=== PATIENT | female | born 1955 | race Caucasian/White ===

== ENCOUNTER 2023-03-14 11:02 | Outpatient (CLI) | payer MEDICARE, OTHER ==
[2023-03-14 12:42] LABS: BASOPHILS # (AUTO) 0.1 K/uL (0.0-0.2); BASOPHILS % (AUTO) 0.8 % (0.0-2.0); EOSINOPHILS % (AUTO) 3.1 % (0.0-6.0); HEMATOCRIT 36 % (33-45); HEMOGLOBIN 11.9 g/dL (11.5-14.8); LYMPHOCYTES # (AUTO) 2.8 K/uL (0.8-4.8); LYMPHOCYTES % (AUTO) 39.7 % (20.0-44.0); MEAN CORPUSCULAR HGB CONC 34 g/dl (31.0-36.0); MEAN CORPUSCULAR VOLUME 89 fL (82-100); MONOCYTES # (AUTO) 0.5 K/uL (0.1-1.30); MONOCYTES % (AUTO) 7.1 % (2.0-12.0); NEUTROPHILS # (AUTO) 3.5 K/uL (1.8-8.9); NEUTROPHILS % (AUTO) 49.3 % (43.0-81.0); PLATELET COUNT (AUTO) 300 K/uL (150-450); RED BLOOD CELL COUNT(AUTO) 3.99 MIL/uL (4.0-5.2); WHITE BLOOD COUNT (AUTO) 7.1 K/uL (4.3-11.0)
[2023-03-14 12:43] LABS: BILIRUBIN,URINE NEGATIVE (NEGATIVE); COLOR,URINE YELLOW (YELLOW); LEUKOCYTE ESTERASE ,URINE 2+ (NEGATIVE); NITRITE, URINE POSITIVE (NEGATIVE); PROTEIN,URINE NEGATIVE (NEGATIVE); UGLUCOSE NEGATIVE (NEGATIVE); UROBILINOGEN,URINE 0.2 EU/dL (0.2)
[2023-03-14 13:01] LABS: BACTERIA,URINE Many /HPF (None Seen); SQUAMOUS EPITHELIAL CELL,UR Moderate /HPF (None Seen); WBC,URINE 51-80 /HPF (0-3)
[2023-03-14 13:02] LABS: MUCUS,URINE Moderate /LPF (None Seen)
[2023-03-14 13:13] LABS: CALCIUM, SERUM 9.4 mg/dL (8.5-10.1); CREATININE 1.5 mg/dL (0.6-1.3); POTASSIUM 4.9 mmol/L (3.5-5.1)
== END 2023-03-14 23:59 | disposition home or self-care (01) ==
LOC: LAB 11:02
PROVIDERS: ATTEND Internal Medicine Pulmonary Disease
DX: Z01.818 Encounter for other preprocedural examination (principal)
CPT/HCPCS: 36415; 71045-TC; 80048-TC; 81001; 85025-TC; 85610-TC; 85730-TC; 87086-TC

== ENCOUNTER 2023-03-17 14:00 | Outpatient (CLI) | payer MEDICARE, OTHER | END 2023-03-17 23:59 | disposition home or self-care (01) | LOC: LAB 14:00 | PROVIDERS: ATTEND Dentist Oral and Maxillofacial Surgery | DX: Z01.812 Encounter for preprocedural laboratory examination (principal); Z20.822 Contact with and (suspected) exposure to COVID-19 | CPT/HCPCS: U0003; C9803 ==

== ENCOUNTER 2023-03-24 08:36 | Inpatient (IN) | payer MEDICARE, OTHER ==
[~2023-03-24] VITALS: Ht 172.7 cm; Wt 102.1 kg
[2023-03-24 09:30] VITALS: BP 135/75
[2023-03-24] MEDS ORDERED: ACETAMINOPHEN ES 500 MG TABLET PO ONE (09:30)
[2023-03-24] MEDS ORDERED: GABAPENTIN 300 MG CAPSULE PO ONE (09:30)
[2023-03-24] MEDS ORDERED: VANCOMYCIN 1 GM VIAL ONE (09:46)
[2023-03-24] MEDS ORDERED: DEXAMETHASONE SOD PHOSPHATE 10 MG/ML VIAL ONE (09:46)
[2023-03-24] MEDS ORDERED: LIDOCAINE 2%-EPI 1:100,000 30 ML VIAL ONE (09:46)
[2023-03-24] MEDS ORDERED: FENTANYL PF 100MCG/2ML AMPUL ONE (11:16)
[2023-03-24] MEDS ORDERED: FAMOTIDINE/PF INJ 20 MG/2 ML VIAL IV ONE (11:16)
[2023-03-24] MEDS ORDERED: ROCURONIUM BROMIDE 50 MG/5 ML ONE (11:16)
[2023-03-24] MEDS ORDERED: IV NS 0.9% 1,000 ML IV PRN (14:00)
[2023-03-24] MEDS ORDERED: ACETAMINOPHEN 325 MG TABLET PO PRN (14:00)
--- NOTE | 2023-03-24 14:10 | NUR ---
Received patient stable from day surgery. Patient admitted to Tele as per MD's order. Vitals taken as follows: BP-123/59, HR-83, Temp-97.7, RR-17, SPO2-96%. Skin intact except for rashes on lower right breast, photo taken. Initial orders from Dr. Varela put in, Hospitalist Jeremy garza. Charge nurse aware. Will continue to monitor the patient.
[2023-03-24] MEDS ORDERED: METH1TAB69 PO (15:05)
[2023-03-24] MEDS ORDERED: MULT-447 PO (15:05)
[2023-03-24] MEDS ORDERED: ALLO100T PO (15:05)
[2023-03-24] MEDS ORDERED: ICOS1CAP PO (15:05)
[2023-03-24] MEDS ORDERED: ROSU20TA32 PO (15:05)
[2023-03-24] MEDS ORDERED: DICL100G34 TD (15:05)
[2023-03-24] MEDS ORDERED: BISO5TAB20 PO (15:05)
[2023-03-24] MEDS ORDERED: CHOL200010 PO (15:05)
[2023-03-24] MEDS ORDERED: ASPI-1420 PO (15:05)
[2023-03-24] MEDS ORDERED: AMOX1TAB16 PO (15:14)
[2023-03-24 16:00] VITALS: BP 131/72
[2023-03-24] MEDS ORDERED: ALLOPURINOL 100 MG TABLET PO PRN (17:30)
--- NOTE | 2023-03-24 18:50 | NUR ---
Patient resting in bed, ambulatory with BRP, tolerated soft diet well, A/Ox4. Patient's daughter at bedside before and after the day surgery. Patient has IV access at Lt hand #22, C/D/I. Seen by hospitalist later this pm, Dr. Jeremy Prasad who mentioned, patient for DC planning by tomorrow. Safety protocol in placed. will be endorsed to pm shift nurse for JENNIFER
--- NOTE | 2023-03-24 20:20 | NUR ---
SALES ATTENDANT BUILDING MATERIALS OPENING NOTES RECEIVED PATIENT IN BED, AWAKE AND COHERENT. ON MODERATE HIGH BACK REST POSITION. ON ROOM AIR SATURATING WELL. NO COMPLAIN OF PAIN OR DISCOMFORT AT THIS TIME. NO CHEST PAIN OR DISTRESS NOTED. ON DVT MACHINE TOLERATING WELL. PAIN MANAGEMENT PAIN MAINTAINED.KEPT SIDE RAILS UP X 2 ALL THE TIME, KEPT BED ON LOWER LOCKED POSITION. ASSIST PATIENT DURING AMBULATION. ATTACHED TO TELE MONITORING DEVICE. WILL CONTINUE TO MONITOR.
[2023-03-24] MEDS ORDERED: ATORVASTATIN 40 MG TABLET PO SCH (22:00)
--- NOTE | 2023-03-25 05:30 | NUR ---
RN NOTES MRSA SWAB DONE AND SENT TO LABORATORY.
--- NOTE | 2023-03-25 06:39 | NUR ---
RN MS CLOSING NOTES PATIENT IS IN BED, ASLEEP ON MODERATE HIGH BACK REST POSITION. ON ROOM AIR SATURATING WELL. WITH IV ACCESS AT LEFT HAND #22G PATENT AND INTACT. NO PAIN OR DISCOMFORT AT THIS TIME, CONTINENT AND ABLE TO GO TO THE BATHROOM WITH MINIMAL ASSISTANCE,AMBULATE WITH ASSISTANCE, PAIN MANAGEMENT MAINTAINED. ALL DUE MEDICATIONS GIVEN, ALL NEEDS ATTENDED. KEPT BED ON LOWER LOCKED POSITION, KEPT SIDE RAILS UP X2 ALL THE TIME, KEPT CALL LIGHT WITHIN AT REACH. SAFETY MEASURES MAINTAINED,KEPT PATIENT WARM AND COMFORTABLE, WILL ENDORSED TO HEADWAITRESS FOR JENNIFER.
--- NOTE | 2023-03-25 07:20 | NUR ---
RN OPENING NOTES RECEIVED PATIENT IN BED, AWAKE AND COHERENT. ON ROOM AIR SATURATING WELL. NO COMPLAIN OF PAIN OR DISCOMFORT AT THIS TIME. IV ACCESS RIGHT HAND #22 SL , NO SOB OR DISTRESS NOTED. .KEPT SIDE RAILS UP X 2 ALL THE TIME, KEPT BED ON LOWER LOCKED POSITION. ASSIST PATIENT DURING AMBULATION. WILL CONTINUE TO MONITOR.
[2023-03-25 08:41] VITALS: BP 120/52
[2023-03-25] MEDS ORDERED: AMOX/CLAVULANATE 875 MG TABLET PO SCH (09:00)
[2023-03-25] MEDS ORDERED: BISOPROLOL FUMARATE 5 MG TABLET PO SCH (09:00)
[2023-03-25] MEDS ORDERED: ASPIRIN EC 81 MG TABLET.DR PO SCH (09:00)
--- NOTE | 2023-03-25 14:50 | NUR ---
DRIER TRANSFER CAR OPERATOR NOTES PATIENT WAS SEEN BY DR MANDEL AND WITH ORDER FOR DISCHARGE TO HOME , STABLE AND MEDICALLY CLEARED BY MD , ALL DISCHARGE PAPERS WERE PREPARED AND DISCHARGE INSTRUCTIONS PROVIDED TO THE PATIENT , ABLE TO UNDERSTAND INSTRUCTIONS PROVIDED REGARDING MEDICATIONS , FOLLOW UP WITH DR MCCARTHY AND CALL 911 IN CASE OF EMERGENCY , IV ACCESS AND ID BAND WAS REMOVED , ALL BELONGINGS WERE TAKEN AND FORM WAS SIGN FOR THE BELONGING LIST , DAUGHTER WILL PROVIDE TRANSPORTATION AND PATIENT WAS ACCOMPANIED BY MANAGER DRILLING TO THE LOBBY , LEFT WITH NO SOB , NO C/O OF PAIN AND DISCOMFORT , IN A STABLE CONDITION
== END 2023-03-25 14:45 | disposition home or self-care (01) | DRG 141 ==
LOC: DS 08:36 → MED 08:38
PROVIDERS: ADMIT Dentist Oral and Maxillofacial Surgery
PROC: 0NBR0ZX Excision of Maxilla, Open Approach, Diagnostic (ICD-10-PCS; principal; 2023-03-24)
PROC: 0NSR04Z Reposition Maxilla with Internal Fixation Device, Open Approach (ICD-10-PCS; 2023-03-24)
PROC: 0NUR0KZ Supplement Maxilla with Nonautologous Tissue Substitute, Open Approach (ICD-10-PCS; 2023-03-24)
PROC: 0NST04Z Reposition Right Mandible with Internal Fixation Device, Open Approach (ICD-10-PCS; 2023-03-24)
PROC: 0NC Head and Facial Bones, Extirpation (ICD-10-PCS; 2023-03-24)
PROC: 0NBV0ZX Excision of Left Mandible, Open Approach, Diagnostic (ICD-10-PCS; 2023-03-24)
DX: M27.2 Inflammatory conditions of jaws (principal); S02.40CK Maxillary fracture, right side, subsequent encounter for fracture with nonunion; S02.40DK Maxillary fracture, left side, subsequent encounter for fracture with nonunion; T86.831 Bone graft failure; S02.609K Fracture of mandible, unspecified, subsequent encounter for fracture with nonunion; J32.0 Chronic maxillary sinusitis; I25.10 Atherosclerotic heart disease of native coronary artery without angina pectoris; Z95.1 Presence of aortocoronary bypass graft; E78.5 Hyperlipidemia, unspecified; M10.9 Gout, unspecified; E66.9 Obesity, unspecified; Z68.34 Body mass index [BMI] 34.0-34.9, adult; I10 Essential (primary) hypertension; X58.XXXD Exposure to other specified factors, subsequent encounter; I25.2 Old myocardial infarction; K08.409 Partial loss of teeth, unspecified cause, unspecified class; Z96.643 Presence of artificial hip joint, bilateral; M79.5 Residual foreign body in soft tissue; M27.40 Unspecified cyst of jaw; M85.68 Other cyst of bone, other site; D49.2 Neoplasm of unspecified behavior of bone, soft tissue, and skin
CPT/HCPCS: 88305-TC; 88311-TC; C1713; G0378; J1100; J2405; J2704; J3010; J3370; J3490; J7030; J7040

== ENCOUNTER 2023-07-28 11:16 | Outpatient (CLI) | payer MEDICARE, OTHER ==
[~2023-07-28 11:16] MED LIST: ALLO100T PO; ASPI-1420 PO; BISO5TAB20 PO; CHOL200010 PO; DICL100G34 TD; ICOS1CAP PO; METH1TAB69 PO; MULT-447 PO; ROSU20TA32 PO
[2023-07-28 12:16] LABS: BASOPHILS # (AUTO) 0.1 K/uL (0.0-0.2); BASOPHILS % (AUTO) 1.2 % (0.0-2.0); EOSINOPHILS # (AUTO) 0.3 K/uL (0.0-0.7); EOSINOPHILS % (AUTO) 3.3 % (0.0-6.0); HEMATOCRIT 37 % (33-45); HEMOGLOBIN 12.5 g/dL (11.5-14.8); LYMPHOCYTES # (AUTO) 3.3 K/uL (0.8-4.8); LYMPHOCYTES % (AUTO) 42.2 % (20.0-44.0); MEAN CORPUSCULAR HEMOGLOBIN 31 PG (26.0-33.0); MEAN CORPUSCULAR HGB CONC 34 g/dl (31.0-36.0); MEAN CORPUSCULAR VOLUME 91 fL (82-100); MONOCYTES # (AUTO) 0.5 K/uL (0.1-1.30); NEUTROPHILS # (AUTO) 3.7 K/uL (1.8-8.9); NEUTROPHILS % (AUTO) 47.3 % (43.0-81.0); PLATELET COUNT (AUTO) 310 K/uL (150-450); RED BLOOD CELL COUNT(AUTO) 4.05 MIL/uL (4.0-5.2); RED CELL DISTRIBUTION WIDTH 13.8 % (11.5-15.0); WHITE BLOOD COUNT (AUTO) 7.8 K/uL (4.3-11.0)
[2023-07-28 12:23] LABS: INR 0.98 (0.91-1.10); PARTIAL THROMBOPLASTIN TIME 26.2 SEC (24.3-34.3); PROTHROMBIN TIME 10.3 SECS (9.2-11.1)
[2023-07-28 12:25] LABS: APPEARANCE,URINE SLIGHTLY CLOUDY (CLEAR); BILIRUBIN,URINE NEGATIVE (NEGATIVE); BLOOD, URINE NEGATIVE Ery/uL (NEGATIVE); COLOR,URINE YELLOW (YELLOW); KETONES,URINE NEGATIVE (NEGATIVE); LEUKOCYTE ESTERASE ,URINE 1+ (NEGATIVE); NITRITE, URINE NEGATIVE (NEGATIVE); PROTEIN,URINE NEGATIVE (NEGATIVE); UGLUCOSE NEGATIVE (NEGATIVE); UROBILINOGEN,URINE 0.2 EU/dL (0.2)
[2023-07-28 12:44] LABS: RBC,URINE 0-2 /HPF (0-2)
[2023-07-28 12:45] LABS: ADD URINE CULTURE YES; BACTERIA,URINE Few /HPF (None Seen); SQUAMOUS EPITHELIAL CELL,UR Few /HPF (None Seen)
[2023-07-28 12:52] LABS: ALBUMIN 3.7 g/dL (3.4-5.0); BILIRUBIN,TOTAL 0.4 mg/dL (0.2-1.0); CALCIUM, SERUM 9.5 mg/dL (8.5-10.1); CREATININE 1.4 mg/dL (0.6-1.3); POTASSIUM 4.5 mmol/L (3.5-5.1); TOTAL PROTEIN, SERUM 7.8 g/dL (6.4-8.2)
== END 2023-07-28 23:59 | disposition home or self-care (01) ==
LOC: RAD 11:16
PROVIDERS: ATTEND Internal Medicine Interventional Cardiology
DX: Z01.818 Encounter for other preprocedural examination (principal); I70.0 Atherosclerosis of aorta; D68.9 Coagulation defect, unspecified; E03.9 Hypothyroidism, unspecified; E78.5 Hyperlipidemia, unspecified; I10 Essential (primary) hypertension; I25.10 Atherosclerotic heart disease of native coronary artery without angina pectoris; N39.0 Urinary tract infection, site not specified
CPT/HCPCS: 36415; 71046; 80053-TC; 80061-TC; 81001; 85025-TC; 85730-TC; 87086-TC

== ENCOUNTER 2023-08-18 09:31 | Inpatient (IN) | payer MEDICARE, OTHER ==
[~2023-08-18] VITALS: Ht 172.7 cm; Wt 102.2 kg
[2023-08-18] VITALS (8 sets, daily range): BP systolic 129–162; BP diastolic 64–78; TEMP 97.4–98.2; O2SAT 95–99
[2023-08-18] MEDS ORDERED: ATOR10TA PO (11:53)
[2023-08-18] MEDS ORDERED: ICOS1CAP PO (11:53)
[2023-08-18] MEDS ORDERED: VANCOMYCIN 1 GM VIAL ONE (13:25)
[2023-08-18] MEDS ORDERED: LIDOCAINE 2%-EPI 1:100,000 30 ML VIAL ONE (13:25)
[2023-08-18] MEDS ORDERED: dexaMETHasone SOD PHOSPHATE 10 MG/ML VIAL ONE (13:25)
[2023-08-18] MEDS ORDERED: ONDANSETRON HCL/PF 4 MG/2 ML VIAL IV PRN (16:00)
[2023-08-18] MEDS ORDERED: HYDROMORPHONE 1 MG/1 ML DISP.SYRIN IV PRN (16:00)
[2023-08-18] MEDS ORDERED: ACETAMINOPHEN 325 MG TABLET PO PRN ×2 (16:00→17:30)
[2023-08-18] MEDS ORDERED: IV NS 0.9% 1,000 ML IV SCH (16:00)
[2023-08-18] MEDS ORDERED: Z GUARD REMEDY 4 OZ OINT TP PRN (17:30)
[2023-08-18] MEDS ORDERED: DICLOFENAC TOPICAL 100 GM TUBE TP PRN (17:30)
[2023-08-18] MEDS ORDERED: MAGNESIUM HYDROXIDE 30 ML UDC PO PRN (17:30)
[2023-08-18] MEDS ORDERED: ONDANSETRON HCL/PF 4 MG/2 ML VIAL IVP PRN (17:30)
[2023-08-18] MEDS ORDERED: ATORVASTATIN 10 MG TABLET PO SCH (18:00)
[2023-08-19] MEDS ORDERED: VANCOMYCIN 1 GM in IV D5W 250ml IV SCH (01:00)
[2023-08-19 07:24] LABS: BASOPHILS % (AUTO) 0.1 % (0.0-2.0); HEMATOCRIT 36 % (33-45); HEMOGLOBIN 11.8 g/dL (11.5-14.8); LYMPHOCYTES # (AUTO) 1.6 K/uL (0.8-4.8); LYMPHOCYTES % (AUTO) 12.3 % (20.0-44.0); MEAN CORPUSCULAR HEMOGLOBIN 30 PG (26.0-33.0); MEAN CORPUSCULAR HGB CONC 33 g/dl (31.0-36.0); MEAN CORPUSCULAR VOLUME 91 fL (82-100); MONOCYTES # (AUTO) 0.3 K/uL (0.1-1.30); NEUTROPHILS # (AUTO) 10.9 K/uL (1.8-8.9); NEUTROPHILS % (AUTO) 85.6 % (43.0-81.0); PLATELET COUNT (AUTO) 260 K/uL (150-450); RED BLOOD CELL COUNT(AUTO) 3.91 MIL/uL (4.0-5.2); RED CELL DISTRIBUTION WIDTH 13.7 % (11.5-15.0); WHITE BLOOD COUNT (AUTO) 12.8 K/uL (4.3-11.0)
[2023-08-19 07:40] LABS: CALCIUM, SERUM 9.2 mg/dL (8.5-10.1); CREATININE 1.3 mg/dL (0.6-1.3); MAGNESIUM 2.3 mg/dL (1.8-2.4); PHOSPHORUS 3.2 mg/dL (2.5-4.9); POTASSIUM 4.5 mmol/L (3.5-5.1)
[2023-08-19 08:00] VITALS: BP 131/56; TEMP 97.3; O2SAT 95
[2023-08-19 09:00] VITALS: BP 131/56
[2023-08-19] MEDS ORDERED: ALLOPURINOL 100 MG TABLET PO SCH (09:00)
[2023-08-19] MEDS ORDERED: Medication Not On Formulary EA (Icosapent Ethyl (Vascepa) 1 GM) PO SCH (09:00)
[2023-08-19] MEDS ORDERED: BISOPROLOL FUMARATE 5 MG TABLET PO SCH (09:00)
[2023-08-19] MEDS ORDERED: MULTIVIT W/MINERALS 1 TAB TABLET PO SCH (09:00)
[2023-08-19] MEDS ORDERED: CHOLECALCIFEROL 1,000 UNIT TABLET (VIT D3) PO SCH (09:00)
== END 2023-08-19 11:10 | disposition home or self-care (01) | DRG 908 ==
LOC: DS 09:31 → MED 09:32
PROVIDERS: ADMIT Nurse Practitioner Family; ATTEND Dentist Oral and Maxillofacial Surgery
PROC: 0NSR04Z Reposition Maxilla with Internal Fixation Device, Open Approach (ICD-10-PCS; principal; 2023-08-18)
PROC: 0NPW04Z Removal of Internal Fixation Device from Facial Bone, Open Approach (ICD-10-PCS; 2023-08-18)
PROC: 0NBR0ZX Excision of Maxilla, Open Approach, Diagnostic (ICD-10-PCS; 2023-08-18)
PROC: 0NPW07Z Removal of Autologous Tissue Substitute from Facial Bone, Open Approach (ICD-10-PCS; 2023-08-18)
PROC: 0NUR07Z Supplement Maxilla with Autologous Tissue Substitute, Open Approach (ICD-10-PCS; 2023-08-18)
DX: T86.831 Bone graft failure (principal); S02.40CK Maxillary fracture, right side, subsequent encounter for fracture with nonunion; T84.69XA Infection and inflammatory reaction due to internal fixation device of other site, initial encounter; S02.40DK Maxillary fracture, left side, subsequent encounter for fracture with nonunion; J32.0 Chronic maxillary sinusitis; X58.XXXD Exposure to other specified factors, subsequent encounter; Y83.2 Surgical operation with anastomosis, bypass or graft as the cause of abnormal reaction of the patient, or of later complication, without mention of misadventure at the time of the procedure; Y92.009 Unspecified place in unspecified non-institutional (private) residence as the place of occurrence of the external cause; E78.5 Hyperlipidemia, unspecified; I10 Essential (primary) hypertension; I25.10 Atherosclerotic heart disease of native coronary artery without angina pectoris; M10.9 Gout, unspecified; Z87.891 Personal history of nicotine dependence; Z95.1 Presence of aortocoronary bypass graft; Z96.643 Presence of artificial hip joint, bilateral
CPT/HCPCS: 36415; 80048-TC; 83735-TC; 84100-TC; 85025-TC; 87081-TC; 88300-TC; 88305-TC; 88311-TC; A4223; C1713; G0378; J0690; J1100; J1885; J2704; J3370; J3490; J7030; J7060